=== PATIENT | female | born 2000 | race Caucasian/White ===

== ENCOUNTER 2022-02-13 15:00 | Emergency (ER) | payer OTHER, SELFPAY ==
[2022-02-13 15:16] VITALS: BP 135/96; PULSE 78; RESP 18; TEMP 36.1; O2SAT 98; BMI 37.3
[2022-02-13 16:06] LABS: COVID-19 Test Negative (Negative); IDNOW Serial# 16C4AD1C; Influenza A Negative (Negative); Influenza B2 Negative (Negative)
--- NOTE | 2022-02-13 16:19 | ED_ITS ---
HPI - General Adult General Chief complaint: Upper Respiratory Symptoms Stated complaint: body aches,headaches Time Seen by Provider: 02/13/22 16:19 Source: patient Mode of arrival: ambulatory Limitations: no limitations History of Present Illness HPI narrative: Patient is a 21 year old female presenting to the emergency department today feeling unwell after a known positive COVID-19 exposure yesterday. Patient states that she has been feeling generally unwell since having contact with a known COVID-19 positive individual. Patient denies any dizziness, lightheadedness, abdominal pain, nausea, vomiting, fever, chills, blurry vision, double vision, loss of vision, chest pain, difficulty breathing, shortness of breath, back pain, night sweats, pain with urination, increased urinary frequency, increased urinary urgency, blood in her urine or stool, syncope or a near syncopal episode, recent trauma or falls, bowel incontinence, bladder incontinence, bowel retention, bladder retention, or any other complaints at this time. Onset (ago): day(s) Relieving factors: none Exacerbating factors: none Associated symptoms: cough Treatments prior to arrival: none Related Data Allergies Allergy/AdvReac Type Severity Reaction Status Date / Time No Known Allergies Allergy Verified 02/13/22 15:21 Review of Systems Constitutional: Constitutional: Reports no additional constitutional complaints, Denies chills, Denies fever(s) and Denies night sweats Eyes: Eyes: Reports no additional eye complaints, Denies blurry vision, Denies change in vision, Denies diplopia, Denies eye discharge, Denies loss of vision and Denies eye pain ENT: Denies dizziness Cardiovascular: Cardiovascular: Reports no additional cardiovascular complaints, Denies chest pain, Denies lightheadedness, Denies Loss of Consciousness and Denies dyspnea Respiratory: Respiratory: Reports no additional respiratory complaints, Reports cough and Denies dyspnea Gastrointestinal: Gastrointestinal: Reports no additional gastrointestinal complaints, Denies abdominal pain, Denies melena, Denies hematochezia, Denies change in bowel habits and Denies change in stool character Genitourinary: Genitourinary: Denies hematuria, Denies urinary frequency, D enies dysuria, Denies urinary incontinence, Denies urinary hesitancy and Denies urinary urgency Musculoskeletal: Musculoskeletal: Reports no additional musculoskeletal complaints, Denies numbness and Denies tingling Neurologic: Denies dizziness, Denies loss of vision, Denies numbness and Denies tingling Psychiatric: Psychiatric: Reports no additional psychiatric complaints Endocrine: Endocrine: Reports no additional endocrine complaints Hematologic/Lymphatic: Hematologic/Lymphatic: Reports no additional hematologic/lymphatic complaints Allergic/Immunologic: Allergic/Immunologic: Reports no additional allergic/immunologic complaints [facility] Past Medical History Attestation statement: The following information was validated with the patient. Source: old records reviewed Medical History IBS (irritable bowel syndrome) PCOS (polycystic ovarian syndrome) Social History Social History Advance Directives: No Advance Directives Information Provided: No Patient : No Physical Exam ED Vital Signs: Vital Signs - 24 hr 02/13/22 15:16 Temperature 97.0 F Pulse Rate 78 Respiratory Rate 18 Blood Pressure 135/96 H Pulse Oximetry 98 BMI result Body Mass Index 37.3 Const General: cooperative, no acute distress, alert and awake Nutritional Appearance: well nourished Orientation/consciousness: patient oriented x3 Limitations: no limitations HENMT Head: Yes normal to inspection and Yes atraumatic Ears: hearing grossly normal bilaterally and external ears normal General nose exam: Normal external nose present, no nasal discharge noted and no epistaxis Face and sinus: Yes normal facial exam, No abrasion and No laceration Mouth: Normal oral and palatal mucosa present, no drooling and no muffled voice Eyes General: appearance normal, both eyes and all related structures Periorbital: periorbital findings normal Eyelids: Yes eyelids normal Conjunctivae: conjunctivae normal Pupils: Equal, round and reactive pupils present EOM: EOMs intact bilaterally Neck Neck: Yes normal visual inspection, Yes full ROM and Yes no lymphadenopathy Chest Chest palpation & inspection: normal inspection of the chest Resp Effort & Inspection: normal respiratory effort and able to speak in complete sentences Auscultation: clear to auscultation bilaterally Cardio Rate: regular rate Rhythm: regular rhythm GI Inspection: Yes normal to inspection Neuro General: patient oriented x3 and moves all extremities Cranial nerves: Yes Equal, round and reactive pupils present Cognition (Neuro): normal cognition Motor exam (neuro): 5/5 motor strength present throughout Sensory Exam: Normal double simultaneous stimulation for sensation Coordination: [id number] test normal Extrem General: Yes normal to inspection, Yes full ROM and Yes capillary refill normal Psych Appearance: grossly normal Mental Status: mental status grossly normal Affect: normal affect Attitude: cooperative Thought process: Normal thought process present Thought content: Normal thought content present Insight: Good insight present (Psych) Medical Decision Making MDM Narrative Medical decision making narrative: Patient is a 21 year old female presenting to the emergency department today with a cough and COVID-19 exposure. Patient's physical exam was unremarkable. Patient's rapid COVID-19 and Influenza tests were negative. I explained my physical exam findings as well as all test results to the patient. I answered all questions asked by the patient. I stressed the importance of the patient taking her medication as prescribed. I stressed the importance of the patient following up with her primary care provider. I stressed the importance of the patient returning to the emergency department immediately if her symptoms were to worsen or if she were to develop any dizziness, shortness of breath, difficulty breathing, chest pain, blurry vision, loss of vision, nausea, vomiting, abdominal pain, fever, chills, back pain, or any other complaints. Patient verbalized agreement and understanding with this treatment plan and discharge. Differential Diagnosis Differential Diagnosis: COVID-19, influenza, viral illness Medical Records Medical records reviewed: Yes I reviewed the patient's medical records. Lab Data Lab results reviewed: Yes I reviewed the patient's lab results. Labs: Lab Results 02/13/22 02/13/22 Range/Units 15:23 15:23 COVID-19 (LAUREN) Negative (Negative) COVID-19 Clin Com See Note Influenza Type A (SUZ[facility]NE) Negative (Negative) Influenza Type B (SUZANNE) Negative (Negative) Influenza A & B Note See Note Discharge Plan Discharge Clinical Impression: Close exposure to COVID-19 virus Patient Disposition: Home, Self-Care Instructions: COVID-19 (Coronavirus Disease 2019) (ED) Additional Instructions: Call to discuss finding and establishing with a primary care provider, if you do not already have one. Return to the emergency department immediately if your symptoms worsen or if you develop any dizziness, shortness of breath, difficulty breathing, chest pain, blurry vision, loss of vision, nausea, vomiting, abdominal pain, fever, chills, back pain, or any other complaints. Referrals: Physician,None [Primary Care Provider] - (Follow up with your PCP. ) Stand Alone Forms: Work/School Release Interventions: ED Discharge Assessment Last Done: 02/13/22 16:29 Discharge Date/Time: 02/13/22 16:31 Print Language: Yi
== END 2022-02-13 16:31 | disposition home or self-care (01) ==
PROVIDERS: Emergency Provider Emergency Medicine
DX: R05.9 Cough, unspecified (principal); Z20.822 Contact with and (suspected) exposure to COVID-19
CPT/HCPCS: 87502; 87635; 99282; 99283

== ENCOUNTER 2025-08-05 14:30 | Emergency (ER) | payer OTHER, SELFPAY ==
--- NOTE | ~2025-08-05 | XR_ITS ---
EXAMINATION: XR HAND, LEFT CLINICAL INFORMATION: left thumb pain s/p crush injury COMPARISON: None available. TECHNIQUE: PA, lateral, and oblique views of the left hand. FINDINGS: No acute cortical disruption or malalignment. No lytic or blastic lesions. No subcutaneous emphysema. No metallic or radiopaque foreign body. Metallic reservoir overlapping the PA projection. XR/XR hand LT min 3V IMPRESSION: No acute fracture or dislocation. No metallic or radiopaque foreign body. Electronically signed by: Tee Rosa MD 08/05/2025 03:53 PM EDT
[2025-08-05 15:13] VITALS: BP 207/117; PULSE 100; RESP 18; TEMP 36.2; O2SAT 97; BMI 39.7
--- NOTE | 2025-08-05 15:13 | ED.UPPEXIN ---
HPI - Extremity Injury (Upper) General Chief Complaint: Extremity Injury, Upper Stated Complaint: thumb inj Time Seen by Provider: 08/05/25 18:16 Source: patient and RN notes reviewed Mode of arrival: ambulatory Limitations: no limitations History of Present Illness ED Provider: Anastasia Luciano PA-C HPI narrative: This is a 25-year-old female who presents emergency department with concerns of left thumb pain x2 days. Patient states that she accidentally had her left thumb closed in a car door. This was accidental. She reports some numbness and tingling to the end of her left thumb, she is right-hand dominant. No prior injury to this thumb in the past. No other complaints or concerns at this time. MD complaint: injury to: left and finger Handedness: right Place: outdoors Severity: moderate Relieving factors: none Exacerbating factors: movement of extremity Associated symptoms: denies other symptoms Related Data Previous Rx's ?Medication ?Instructions ?Recorded acetaminophen 500 mg tablet 500 mg PO Q6H PRN pain #30 tabs 08/05/25 (Tylenol Extra Strength) ibuprofen 600 mg tablet 600 mg PO Q6H PRN pain #30 tabs 08/05/25 Allergies Allergy/AdvReac Type Severity Reaction Status Date / Time No Known Allergies Allergy Verified 08/05/25 15:14 Review of Systems Review of Systems: Constitutional : No Fever, No Chills ENT/Mouth : No sore throat, No Rhinorrhea Eyes: No Eye Pain, No Swelling, No Redness Cardiovascular : No Chest Pain, No SOB Respiratory : No Cough, No Sputum Gastrointestinal : No Nausea, No Vomiting, No Diarrhea, No abdominal Pain Genitourinary : No Dysuria, No Hematuria Musculoskeletal : + joint pain, No Myalgias, No Joint Swelling Skin : No Skin Lesions Neuro : No Weakness, No Numbness, No Headache All other systems reviewed and are negative Yes all other systems are reviewed and are negative Constitutional: Constitutional: Reports as per [facility] Past Medical History Medical History IBS (irritable bowel syndrome) PCOS (polycystic ovarian syndrome) Social History Social History Advance Directives: No Advance Directives Information Provided: Yes Do you have a plan to hurt others: No Plan Physical Exam Exam: Exam: General: Awake, alert, and oriented X3. No acute distress. HEENT: Normal inspection CVS: Normal heart rate and rhythm. Pulses normal. Respiratory: No respiratory distress Skin: Warm, dry, no rashes noted to exposed skin. Normal skin color. Normal skin turgor. Extremities: subungual hematoma noted to the left thumb. Patient with tenderness palpation diffusely throughout the thumb, full ROM. Slight edema and ecchymosis noted. Sensation intact. Neuro: Oriented X 3. No motor deficit. No sensory deficit. Vital Signs: Vital Signs: Last Vital Signs Temp 98.1 F 08/05/25 19:44 Pulse 77 08/05/25 19:44 Resp 18 08/05/25 19:44 BP 178/110 H 08/05/25 19:44 Pulse Ox 94 08/05/25 19:44 O2 Del Method Room Air 08/05/25 19:44 BMI result Body Mass Index 39.7 Extrem: Other: left thumb with subungual hematoma noted with TTP overlying the distal phalanx. Full ROM. No open wounds. Cap refill less than 3 seconds. Course Course Course Narrative: This is an RME: Additional HPI, ROS, PE not included below will be deferred to primary provider. RME assessment and note performed by: Anastasia Luciano PA-C This is a [id number], with a PCOS, who presents to the ER with a complaint of left thumb pain. Reports two nights ago her left thumb had got caught in a car door. Plan: xrays Medications Administered Discontinued Medications Generic Name Dose Route Start Last Admin Trade Name Freq PRN Reason Stop Dose Admin Acetaminophen 975 mg 08/05/25 18:16 08/05/25 18:39 Acetaminophen 325 Mg Tablet PO 08/05/25 18:17 975 mg ONCE ONE Administration Medical Decision Making Medical Decision Making MDM Narrative: This is a 25-year-old female who presents emergency department with concerns of left thumb pain x2 days. Patient states that she accidentally had her left thumb closed in a car door. On arrival, BP elevated, she reports hx of HTN over the last several months - not on HTNsive medications at this timee. Her left thumb with subungual hematoma noted, full ROM of the digit with TTP. Xray revealing no acute bony abnormalities. BP remains to be very elevated. She has no blurred vision, CP, SOB, double vision or headache. Given profoundly elevated BP, will get basic labs. She is agreeable. Pt unable to stay for results due to lack of childcare. She has a PCP whom she can follow up with. Encouraged to monitor blood pressure. Given return precautions. She understands and agrees with plan. She is signing AMA d/t leaving prior to results. She understands the risks and consequences of signing AMA. Differential Diagnosis Differential Diagnoses: The differential diagnosis associated with the presentation includes fx, contusion, sprain, stain, HTN urgency Lab Data 08/05/25 19:19 08/05/25 19:19 Labs: Lab Results 08/05/25 08/05/25 Range/Units 15:35 19:19 WBC 13.1 H (4.8-10.8) X10*3/uL RBC 5.11 (4.20-5.50) X10*6/uL Hgb 15.7 (12.0-16.0) g/dl Hct 45.6 (37.0-47.0) % MCV 89.2 (80.0-98.0) fL MCH 30.7 (27.0-33.0) pg MCHC 34.4 (31.0-35.0) g/dl RDW 12.8 (11.0-16.0) % Plt Count 339 (160-400) X10*3/uL MPV 9.0 L (9.4-12.3) fL Immature Gran % (Auto) 0.6 H (0.0-0.4) % Neut % (Auto) 75.6 H (45-73) % Lymph % (Auto) 17.7 L (20-40) % [place] % (Auto) 5.2 (2-11) % Eos % (Auto) 0.5 (0-4) % Baso % (Auto) 0.4 (0-2) % Lymph # (Auto) 2.3 (1.2-4.9) X10*3/uL [place] # (Auto) 0.7 (0.1-1.2) X10*3/uL Eos # (Auto) 0.1 (0.0-0.4) X10*3/uL Baso # (Auto) 0.1 (0.0-0.2) X10*3/uL Abs Immat Gran (auto) 0.08 H (0.00-0.03) X10*3/uL Absolute Neuts (auto) 10.0 H (2.0-8.3) x10*3/uL Absolute Nucleated RBC 0.000 (0.0-0.012) X10*3/uL Nucleated RBC % (auto) 0.0 (0.0-0.2) /100WBC Sodium 142 (135-145) mmol/L Potassium 3.7 (3.3-5.1) mmol/L Chloride 108 (96-108) mmol/L Carbon Dioxide 24 (22-29) mmol/L Anion Gap 14 (12-20) BUN 16 (9-16) mg/dL Creatinine 0.82 (0.5-1.4) mg/dL Estim Creat Clear Calc 135.2 Estimated GFR > 60 Random Glucose 80 (60-115) mg/dL Calcium 9.5 (8.4-10.2) mg/dL Total Bilirubin 0.4 (0.0-1.0) mg/dL Direct Bilirubin 0.2 (0.0-0.5) mg/dL AST 44 H (5-31) U/L ALT 67 H (0-31) U/L Alkaline Phosphatase 94 (39-117) U/L Total Protein 8.4 H (6.5-8.0) g/dL Albumin 5.1 H (3.5-5.0) g/dL Urine Test NEGATIVE (NEGATIVE) Radiology Impression Discussion of test interpretation with radiology: I have reviewed the radiologist's reading. Radiologist Impression: FINDINGS: No acute cortical disruption or malalignment. No lytic or blastic lesions. No subcutaneous emphysema. No metallic or radiopaque foreign body. Metallic reservoir overlapping the PA projection. XR/XR hand LT min 3V IMPRESSION: No acute fracture or dislocation. No metallic or radiopaque foreign body. Electronically signed by: Tee Rosa MD 08/05/2025 03:53 PM EDT Discharge Plan Discharge Clinical Impression: Contusion of thumb, left, High blood pressure Patient Disposition: Left Against Medical Advice Instructions: Subungual Hematoma (ED), How to Take a Blood Pressure Reading (ED), Contusion in Adults (ED) Additional Instructions: You were seen in the emergency department due to a left thumb injury. You have no fractures in your thumb. You were found to have an elevated blood pressure. I performed labs however you are leaving prior to with the labs returning. Given that we are unable to rule out any serious life-threatening illness without the blood work, you were signing against medical advice. You are aware that signing against medical advice can lead to serious consequences including serious harm and or . Rest, ice, elevate, use wrist splint as needed for comfort. Take ibuprofen and or Tylenol as needed for pain and symptoms. If any new or worsening symptoms occur please return for re-evaluation. I am also urging you to follow-up with the erp specialist, call to make an appointment. Prescriptions: New ibuprofen 600 mg tablet 600 mg PO Q6H PRN (Reason: pain) Qty: 30 0RF acetaminophen [Tylenol Extra Strength] 500 mg tablet 500 mg PO Q6H PRN (Reason: pain) Qty: 30 0RF Stand Alone Forms: Against Medical Advice, Work/School Release Interventions: ED Discharge Assessment Last Done: 08/05/25 19:44 Discharge Date/Time: 08/05/25 19:45 Print Language: [place]
[2025-08-05 16:00] LABS: UPreg QC Valid YES
[2025-08-05 18:39] VITALS: BP 206/118; PULSE 98; RESP 16; O2SAT 100
[2025-08-05 18:45] VITALS: BP 178/110
[2025-08-05 19:22] LABS: MANUAL DIFF FLAG NO
[2025-08-05 19:25] LABS: Hematocrit 45.6 % (37.0-47.0); Hemoglobin 15.7 g/dl (12.0-16.0); Imm Gran Abs Auto 0.08 X10*3/uL (0.00-0.03); Imm Gran Pct Auto 0.6 % (0.0-0.4); Lymphocytes Absolute Auto 2.3 X10*3/uL (1.2-4.9); Mean Corpuscular HGB Conc 34.4 g/dl (31.0-35.0); Mean Corpuscular Hemoglobin 30.7 pg (27.0-33.0); Mean Corpuscular Volume 89.2 fL (80.0-98.0); NRBC Abs Auto 0.000 X10*3/uL (0.0-0.012); NRBC Pct Auto 0.0 /100WBC (0.0-0.2); Platelet Count 339 X10*3/uL (160-400); Red Blood Count 5.11 X10*6/uL (4.20-5.50); White Blood Count 13.1 X10*3/uL (4.8-10.8)
[2025-08-05 19:39] LABS: Alanine Aminotransferase 67 U/L (0-31); Albumin Level 5.1 g/dL (3.5-5.0); Alkaline Phosphatase 94 U/L (39-117); Anion Gap 14 (12-20); Aspartate Amino Transferase 44 U/L (5-31); Blood Urea Nitrogen 16 mg/dL (9-16); Calcium 9.5 mg/dL (8.4-10.2); Carbon Dioxide 24 mmol/L (22-29); Chloride 108 mmol/L (96-108); Creatinine Clr Calc Pharmacy 135.2; Estimated Glomerular Filt Rate > 60; Potassium 3.7 mmol/L (3.3-5.1); Sodium 142 mmol/L (135-145); Total Protein 8.4 g/dL (6.5-8.0)
[2025-08-05 19:44] VITALS: BP 178/110; PULSE 77; RESP 18; TEMP 36.7; O2SAT 94
== END 2025-08-05 19:45 | disposition left against medical advice (07) ==
PROVIDERS: Physician Assistant Medical; Emergency Provider Student in an Organized Health Care Education/Training Program
DX: S60.012A Contusion of left thumb without damage to nail, initial encounter (principal); W23.0XXA Caught, crushed, jammed, or pinched between moving objects, initial encounter; Y93.9 Activity, unspecified; Y92.9 Unspecified place or not applicable; Y99.9 Unspecified external cause status; M79.645 Pain in left finger(s)
CPT/HCPCS: 36415; 73130; 80048; 80076; 81025; 85025; 99283

== ENCOUNTER → 2025-08-05 15:15 | Outpatient (BNV) | payer OTHER, SELFPAY | PROVIDERS: Visit Provider Radiology Diagnostic Radiology | DX: S60.012A Contusion of left thumb without damage to nail, initial encounter (principal); W23.1XXA Caught, crushed, jammed, or pinched between stationary objects, initial encounter | CPT/HCPCS: 73130 ==